=== PATIENT | male | born 1950 | race Two or more races ===

== ENCOUNTER 2025-11-09 10:37 | Day surgery (SDC) | payer BC, MEDICAID ==
[2025-11-09] VITALS (8 sets, daily range): BP systolic 89–127; BP diastolic 58–78; PULSE 47–71; RESP 12–15; TEMP 98.2; O2SAT 94–98
[~2025-11-09] VITALS: Ht 172.7 cm; Wt 93.4 kg
[~2025-11-09 10:37] MED LIST: AMIO200T76 PO; APIX5TAB3 PO; METO-395 PO; SACU1TAB PO
[2025-11-09] MEDS: normal saline 1000ml 1,000 ML IV SCH (11:30)
[2025-11-09] MEDS ORDERED: MIDAZolam 1mg/ml 10ml vial IV ONE (12:10)
[2025-11-09] MEDS ORDERED: fentaNYL/PF 50MCG/1 ML 2ML syringe IV ONE (12:10)
[2025-11-09] MEDS ORDERED: fentaNYL/PF 50MCG/1 ML 2ML syringe ONE (12:33)
[2025-11-09] MEDS ORDERED: atropine 0.1mg/ml 10ml syringe ONE (12:34)
[2025-11-09] MEDS ORDERED: midazolam 1 mg/ML 2ml injection ONE (12:34)
--- NOTE | 2025-11-09 13:27 | PROCEDURE NOTE CC ---
Procedure Note Providers to CC CC: SOFIA MCRAE MD ~ Description Planned Procedure Cardioversion Indications Symptomatic Atrial Fibrillation Post Operative Dx: Same Type of Anesthesia Moderate Sedation. Description It was confirmed that patient has been taking oral anticoagulation without interruption for at least 4 weeks. The appropriate time-out procedure was performed including proper identification of the patient, physician, procedure, documentation, and there were no safety issues identified. The patient participated actively in this. After sedation was achieved, the patient was placed in the supine position and hands free patches were placed on their chest in the AP-lateral position. 1 synchronized cardioversion was provided at 200 Joules with conversion to normal sinus rhythm. This was confirmed on EKG. Complication: None The patient tolerated the procedure well without complications. CHRISTIN MCRAE MD Nov 09, 2025 13:27
--- NOTE | 2025-11-09 13:43 | ELECTROCARDIOGRAPH REPORT ---
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 GAVI Mistry Measurements Intervals [place] Rate: 57 P: 33 ME: 210 QRS: -37 QRSD: 106 T: 59 QT: 488 QTc: 476 Interpretive Statements Sinus rhythm Multiple premature complexes, vent & supraven Left axis deviation Low voltage, extremity leads Abnormal R-wave progression, early transition Borderline prolonged QT interval Electronically Signed On 11-10-2025 13:09:[address] GAVI Mistry Please click the below link to view image of tracing.
== END 2025-11-09 15:45 | disposition home or self-care (01) ==
LOC: SSTAY O 10:37
PROVIDERS: ATTEND Student in an Organized Health Care Education/Training Program
DX: I48.91 Unspecified atrial fibrillation (principal); I11.0 Hypertensive heart disease with heart failure; I50.9 Heart failure, unspecified; I42.9 Cardiomyopathy, unspecified; Z90.49 Acquired absence of other specified parts of digestive tract; Z88.0 Allergy status to penicillin; Z79.01 Long term (current) use of anticoagulants; Z79.899 Other long term (current) drug therapy
CPT/HCPCS: 92960; 93005; J2250; J3010; J7030; J0461